=== PATIENT | male | born 1995 ===

== ENCOUNTER → 2017-09-13 | Day surgery (SDC) | payer OTHER ==
[~2017-09-13] MED LIST: LIDOCAINE 1% INJ-PF (10 MG/ML) 30 ML SDV ONE
--- NOTE | 2017-09-13 15:07 | RADIOLOGY REPORT (SQ) ---
EXAM DESCRIPTION: FLUORO/NEEDLE PLACEMENT; ARTHRO SHOULDER INJECTION COMPLETED DATE/TIME: 09/13/2017 2:38 pm REASON FOR STUDY: R SHOULDER PAIN COMPARISON: None. FLUOROSCOPY TIME: 30 seconds 1 digital radiographic image saved to PACS. LIMITATIONS: None. PROCEDURE: Procedure, risks, benefits and alternatives explained to patient who then gave written co nsent. The posterior right glenohumeral joint was marked and a time out was called for correct proced ure verification. Posterior entry site marked using fluoroscopic guidance. Shoulder prepped and fili ped using sterile technique. Local anesthesia achieved using 8 mL of 1% lidocaine injection. 22 gau ge spinal needle introduced into the joint space under direct fluoroscopic visualization. Non-ionic c ontrast instilled to confirm intra-articular position. Dilute gadolinium solution then injected. Nee dle removed and entry site covered with sterile bandage. No immediate complications noted. TECHNIQUE: Digital images acquired during fluoroscopy and stored on PACS. Patient immediately take n to the MR suite for additional imaging. INJECTION LOCATION: Right glenohumeral joint CONTRAST TYPE AND AMOUNT: 1 mL of Isovue-300 was injected to confirm intra-articular needle placement followed by 10 mL of dilute Prohance/Saline mixture. IMPRESSION: SUCCESSFUL NEEDLE PLACEMENT AND INJECTION FOR RIGHT SHOULDER MR ARTHROGRAM USING POSTERI OR APPROACH. COMMENT: Quality ID 145: Final reports for procedures using fluoroscopy that document radiation exp osure indices, or exposure time and number of fluorographic images (if radiation exposure indices are not available) TECHNICAL DOCUMENTATION: JOB ID: [id number] [employer]- All Rights Reserved Reading location - IP/workstation name: [facility]
--- NOTE | 2017-09-13 15:07 | RADIOLOGY REPORT (SQ) ---
EXAM DESCRIPTION: FLUORO/NEEDLE PLACEMENT; ARTHRO SHOULDER INJECTION COMPLETED DATE/TIME: 09/13/2017 2:38 pm REASON FOR STUDY: R SHOULDER PAIN COMPARISON: None. FLUOROSCOPY TIME: 30 seconds 1 digital radiographic image saved to PACS. LIMITATIONS: None. PROCEDURE: Procedure, risks, benefits and alternatives explained to patient who then gave written co nsent. The posterior right glenohumeral joint was marked and a time out was called for correct proced ure verification. Posterior entry site marked using fluoroscopic guidance. Shoulder prepped and fili ped using sterile technique. Local anesthesia achieved using 8 mL of 1% lidocaine injection. 22 gau ge spinal needle introduced into the joint space under direct fluoroscopic visualization. Non-ionic c ontrast instilled to confirm intra-articular position. Dilute gadolinium solution then injected. Nee dle removed and entry site covered with sterile bandage. No immediate complications noted. TECHNIQUE: Digital images acquired during fluoroscopy and stored on PACS. Patient immediately take n to the MR suite for additional imaging. INJECTION LOCATION: Right glenohumeral joint CONTRAST TYPE AND AMOUNT: 1 mL of Isovue-300 was injected to confirm intra-articular needle placement followed by 10 mL of dilute Prohance/Saline mixture. IMPRESSION: SUCCESSFUL NEEDLE PLACEMENT AND INJECTION FOR RIGHT SHOULDER MR ARTHROGRAM USING POSTERI OR APPROACH. COMMENT: Quality ID 145: Final reports for procedures using fluoroscopy that document radiation exp osure indices, or exposure time and number of fluorographic images (if radiation exposure indices are not available) TECHNICAL DOCUMENTATION: JOB ID: [id number] [employer]- All Rights Reserved Reading location - IP/workstation name: [facility]
--- NOTE | 2017-09-13 18:23 | RADIOLOGY REPORT (SQ) ---
EXAM DESCRIPTION: MRI RT UPPER JOINT WITH COMPLETED DATE/TIME: 09/13/2017 3:27 pm REASON FOR STUDY: R SHOULDER PAIN COMPARISON: None. TECHNIQUE: Right shoulder images acquired and stored on PACS. Oblique coronal, oblique sagittal, and axial imaging to include fat sensitive sequences as T1, water sensitive sequences as FST2/STIR, and contrast sensitive sequences as FST1. LIMITATIONS: None. FINDINGS: JOINT DISTENTION: Adequate distention for interpretation. BONE MARROW AND CORTEX: Normal. No significant osteophytes. No edema or defects. AC JOINT: Type II acromion. Bulky acromioclavicular joint hypertrophy is present with mild edema in t he distal clavicle and acromion. There is narrowing of the subacromial space. Small amount of fluid in the subacromial/subdeltoid bursa without gadolinium. GLENOHUMERAL JOINT: No subluxation or dislocation. No focal chondral defects or reactive bone changes . ROTATOR CUFF: Intact without significant tendinopathy, partial or full-thickness tears. No peritendin itis. LABRUM AND BICEPS LABRAL COMPLEX: Increased signal signal in the rotator interval worrisome for a sma ll tear, without tear of the superior glenohumeral ligament. This is best shown on sagittal image 9 and coronal images 7-9. Superior labrum, intra-articular long head biceps intact. Distal biceps in n ormal anatomic location in bicipital groove. No paralabral cysts. INFERIOR LABRAL COMPLEX: Bony glenoid and labrum intact. IGHL intact without thickening or tear. No p aralabral cysts. ADJACENT SOFT TISSUES: No masses or nodes. OTHER: No other significant finding. IMPRESSION: AC joint hypertrophy with narrowing of the subacromial space, and small effusion in the subacromial/subdeltoid bursa. Suspect a small tear along the rotator interval. TECHNICAL DOCUMENTATION: JOB ID: [id number] [employer]- All Rights Reserved Reading location - IP/workstation name: [facility]
== END ==
LOC: EDSTATUS 13:11 → RAD 13:14 → EDSTATUS 13:20
PROVIDERS: ATTEND Student in an Organized Health Care Education/Training Program
DX: M25.511 Pain in right shoulder (principal); M25.411 Effusion, right shoulder; M25.811 Other specified joint disorders, right shoulder
CPT/HCPCS: 23350; 77002; J3490